=== PATIENT | female | born 1990 | race Caucasian/White ===

== ENCOUNTER 2021-11-27 20:15 | Emergency (ER) | payer BC, OTHER ==
[2021-11-27] MEDS ORDERED: CEPHALEXIN 250 MG Prepack 8 CAP BOTTLE PO STA (20:55)
[2021-11-27] MEDS ORDERED: TETANUS/DIPHTHERIA/PERTUSSIS 0.5 ML SYRINGE IM ONE (20:55)
--- NOTE | 2021-11-27 20:58 | ED Physician Documentation ---
PD HPI UPPER EXT INJURY - Stated complaint Stated Complaint: R THUMB INJ - Chief complaint Chief Complaint: Laceration - History obtained from History obtained from: Patient (About 21 to 22 hours ago she cut the dorsum of her right thumb, the dominant side, broken glass while washing dishes. Not up-to-date on tetanus.) Review of Systems Constitutional: reports: Reviewed and negative Eyes: reports: Reviewed and negative Cardiac: reports: Reviewed and negative Respiratory: reports: Reviewed and negative PD PAST MEDICAL HISTORY - Past Medical History Past Medical History: No - Past Surgical History Past Surgical History: No - Present Medications Home Medications: Ambulatory Orders Medication Instructions Recorded Confirmed cephALEXin [Keflex] 500 mg PO Q6H #20 cap 11/27/21 - Allergies Allergies/Adverse Reactions: Allergies Allergy/AdvReac Type Severity Reaction Status Date / Time lidocaine Allergy Anaphylaxis Verified 11/27/21 20:24 - Social History Does the pt smoke?: No Smoking Status: Never smoker Does the pt drink ETOH?: No Does the pt have substance abuse?: No - Immunizations Immunizations are current?: Yes PD ED PE NORMAL - Vitals Vital signs reviewed: Yes - General General: Alert and oriented X 3, No acute distress - Extremities Extremities: Other (Over the dorsum of the right first MCP there is a flap laceration measuring 2 cm around. Did the overlying skin defect is there but only intact by just a bit of skin.) - Neuro Neuro: Alert and oriented X 3, Normal speech - Psych Psych: Normal mood, Normal affect Results - Vitals Vitals: Vital Signs - 24 hr 11/27/21 20:19 Temperature 36.4 C L Heart Rate 98 Respiratory 16 Rate Blood Pressure 127/75 O2 Saturation 100 Oxygen O2 Source Room air Procedures - Laceration (location) Right thumb Length in cm: 2 Wound type: Curved, Flap, Into subcut fat Neurovascular status: Sensory intact, Motor intact, Vascular intact Tendon involvement: Tendon intact Anesthesia: Lidocaine 1% Wound preparation: Hibiclens, Irrigated copiously NS Skin layer closure: Nylon, Interrupted, Size #-0 - enter number (4-0), Sutures - enter # (6) Other: Tetanus booster given PD MEDICAL DECISION MAKING - ED course ED course: The wound is 22 hours old, we had a significant discussion about the risk of infection at this point and after discussion of pros and cons they would like to go ahead with primary closure with prophylactic antibiotics. Note she has a listed allergy to lidocaine, we explored this, her allergy is syncope. As such I suspect it was actually a vagal episode as opposed to an allergy and she was administered lidocaine here without effect while in the supine position. Departure - Departure Disposition: 01 Home, Self Care Clinical Impression: Thumb laceration Condition: Good Record reviewed to determine appropriate education?: Yes Instructions: ED Laceration Hand Prescriptions: cephALEXin [Keflex] 500 mg PO Q6H #20 cap Comments: I sent the prescription prophylactic antibiotics to [facility] in [place]. Come back for any signs of infection which would include: Redness, swelling, drainage, increased pain, or fevers. You can wash it soap and water. Keep it covered and moist with bacitracin ointment which is available over the counter; avoid neosporin. Follow-up with your physician in About 14 days for suture removal.
[2021-11-27 21:12] VITALS: BP 125/75
== END 2021-11-27 21:13 | disposition home or self-care (01) ==
LOC: ED 20:15
DX: S61.011A Laceration without foreign body of right thumb without damage to nail, initial encounter (principal); W25.XXXA Contact with sharp glass, initial encounter; Y93.G1 Activity, food preparation and clean up
CPT/HCPCS: 12001; 90471; 99283